=== PATIENT | male | born 1950 | race Caucasian/White ===

== ENCOUNTER 2022-02-24 08:01 | Emergency (ER) | payer OTHER ==
[~2022-02-24] VITALS: Ht 177.8 cm; Wt 74.8 kg
[2022-02-24] MEDS ORDERED: TAMS0.4C PO (11:54)
== END 2022-02-24 12:22 | disposition home or self-care (01) ==
LOC: ER 08:01
DX: M94.0 Chondrocostal junction syndrome [Tietze] (principal)